=== PATIENT | female | born 2000 | race Caucasian/White ===

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

== ENCOUNTER 2021-02-21 18:41 | Emergency (ER) | payer OTHER, MEDICAID ==
[~2021-02-21] VITALS: Ht 162.6 cm; Wt 74.8 kg
[~2021-02-21 18:41] MED LIST: FOLI-43 PO; PREN1TAB81 PO
[2021-02-21 19:27] VITALS: BP_SYST 136
--- NOTE | 2021-02-21 19:50 | NUR ---
PATIENT TAKEN TO XRAY FOR LEFT SHOULDER.
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
--- NOTE | 2021-02-21 20:24 | NUR ---
Patient to ER bed CHAIR [address] to [facility] for evaluation. Side rails up.
--- NOTE | 2021-02-21 21:30 | NUR ---
DR. ZAMORA AT BEDSIDE FOR EVALUATION.
[2021-02-21] MEDS ORDERED: IBUP-1969 PO (21:44)
[2021-02-21] MEDS ORDERED: LIDOCAINE PATCH 5% 1 EA TP ONE ×2 (21:45→21:59)
[2021-02-21] MEDS ORDERED: KETOROLAC TROMETHAMINE 30 MG VIAL IM ONE (21:45)
[2021-02-21 22:00] VITALS: BP_SYST 136
--- NOTE | 2021-02-21 22:01 | NUR ---
Patient given written and verbal discharge instructions and verbalizes understanding. DR. SERA HUNTER MD discussed with patient the results and treatment provided. Patient in stable condition. ID arm band removed. Rx of IBUPROFEN given. Patient educated on pain management and to follow up with PMD. Pain Scale 0/10 Opportunity for questions provided and answered. Medication side effect fact sheet provided.
== END 2021-02-21 22:01 | disposition home or self-care (01) ==
LOC: SED 18:41
DX: S46.912A Strain of unspecified muscle, fascia and tendon at shoulder and upper arm level, left arm, initial encounter (principal); Z79.899 Other long term (current) drug therapy; V49.59XA Passenger injured in collision with other motor vehicles in traffic accident, initial encounter; Y93.89 Activity, other specified; Y92.89 Other specified places as the place of occurrence of the external cause; Y99.8 Other external cause status
CPT/HCPCS: 73030; 81025; 96372; 99283; J1885